=== PATIENT | female | born 1995 | race Caucasian/White ===

== ENCOUNTER 2024-05-11 07:54 | Inpatient (IN) ==
[2024-05-11] MEDS ORDERED: LIDOCAINE 1% LOCAL 20 ML VIAL INFIL PRN (08:13)
--- NOTE | 2024-05-11 08:47 | History & Physical Report ---
Date of Service May 11, 2024 Assessment & Plan (1) Carrier of group B Streptococcus: (2) Need for rhogam due to Rh negative mother: (3) Encounter for induction of labor: Plan Admit for IOL. Echevarria bulb placed 8/26 PM, currently still in place. Plan for 2x PCN and pit. Pt desires epidural for pain ctrl Admission and Anticipated Discharge Date Admission Date: May 11, 2024 History of Present Illness Primary Care Provider: NO PCP Patient is a 28 y/o female currently at 40 5/7 (NICHO 05/06/24) who is here for induction of labor. Echevarria bulb was placed 8/26 PM, currently still in place. She has had regular appointments with OB. She denies fevers, fatigue, FERNANDEZ, SOB, chest pain, leg swelling, or n/v exceeding baseline -related symptoms. movement present; no fluid loss or bloody show; External FHT and external uterine monitors used, FHT category 1 Blood type: O-; Rhogam given 02/18 Antibody screen: Neg GBS: Pos Rubella: Immune VDRL/RPR: Non-reactive Gonorrhea: Not detected Chalmydia: Not detected HIV: Non-reactive HbSAg: Non-reactive Allergies Allergy/AdvReac Type Severity Reaction Status Date / Time No Known Allergies Allergy Verified 05/11/24 10:23 Home Medications Medication Instructions Recorded Confirmed Type breast pump #1 ea 03/04/24 05/10/24 Rx vits no.124-ferrous fum 1 tab PO DAILY 05/11/24 05/11/24 History 27 mg iron-folic acid 800 mcg tablet ( Vitamin) Past Med/Surg History Problem List (Updated 05/11/24 @ 08:49 by Shabbir Hernandez MD) Encounter for induction of labor Encounter for care and examination of lactating mother Carrier of group B Streptococcus Encounter for anatomic survey Need for rhogam due to Rh negative mother resulting from in vitro fertilization, antepartum Medical History (Updated 05/11/24 @ 08:49 by Shabbir Hernandez MD) History of chicken pox Surgical History S/P myringotomy with insertion of tube S/P tonsillectomy Family History Mother Ovarian cancer Diabetes Father Hypercholesteremia Denies family history of Breast cancer Colorectal cancer Social History (Updated 11/05/23 @ 08:54 by Ernestine Castillo) Smoking Status: Never smoker Second Hand Exposure: No; Do You Dip or Chew Tobacco: No; Hx Alcohol Use: No Hx Substance Use: No Beliefs That Will Affect Care: None marital status: marital status details: Javad Soares (38) [phone] Current Living Situation: Spouse Current Living Situation Comment: lives with spouse, dogs current occupational status: employed current occupation: [employer] Other Information That Helps Us Care for You: No Feels Safe at Home: Yes Safety Concerns: Feels Safe At This Time Assistive Devices: None Physical Exam 2 Physical Exam: General: Alert and oriented. No acute distress CV: Regular rate and rhythm. No murmurs. Respiratory: CTA bilaterally. No rhonchi, wheezes, or crackles. No increased work of breathing. Abdomen: Gravid: Soft, nontender upon palpation Pelvic: 0.5 / 50 / -[address] Zavala on 05/10 Lower extremities: NO LE edema. No deep calf pain. Results & Data Results & Data Vital Signs (Past 12 Hours) Vital Signs Temp Pulse Resp BP 05/11/24 07:56 36.7 C 100 H 18 109/66 05/11/24 07:55 100 H 109/66 Laboratory Results 05/11/24 08:34 Supervising Physician Co-Signing Physician Notes Patient seen with resident and agree with the above findings and plan. Resident Activity Tracking Resident Involvement: Resident Care Provided Care Provided: OB Delivery
[2024-05-11 08:55] LABS: Hematocrit (blood only) 36.5 % (37.0-47.0); Hemoglobin 12.7 g/dl (12.0-16.0); Mean Corpuscular Hemoglobin 30.8 pg (25.0-34.0); Mean Corpuscular Hgb Conc 34.8 g/dL (32.0-36.0); Mean Corpuscular Volume 88.6 fL (80.0-100.0); Mean Platelet Volume 10.3 fL (9.4-12.4); Platelet Count 218 K/uL (130-400); RDW Coefficient of Variation 12.1 % (11.5-14.5); RDW Standard Deviation 38.7 fL (36.4-46.3); Red Blood Count 4.12 M/uL (4.20-5.40); White Blood Count 12.65 K/ul (4.8-10.8)
[2024-05-11] MEDS: LACTATED RINGER'S 1,000 ML IV PRN (09:03)
[2024-05-11] MEDS: OXYTOCIN 30 UNITS/NSS 30 UNITS/500 ML BAG IV PRN (09:04)
[2024-05-11] MEDS: PENICILLIN GK 6 MU in DEXTROSE 5% 250 ML IV STA (09:10)
[2024-05-11] MEDS: PENICILLIN GK 3 MU in DEXTROSE 5% 100 ML IV PRN (13:12)
[2024-05-11] MEDS ORDERED: NALOXONE HCL 0.4 MG/1 ML VIAL/CARP IV PRN (14:59)
[2024-05-11] MEDS ORDERED: NALBUPHINE HCL INJ 10 MG/ML AMP IV PRN (14:59)
[2024-05-11] MEDS ORDERED: ePHEDrine sulfate 50 MG/ML AMP IV PRN (14:59)
[2024-05-11] MEDS ORDERED: fentaNYL citrate PF 100 MCG/2 ML VIAL EPI PRN (14:59)
[2024-05-11] MEDS ORDERED: ROPIVACAINE 0.5% PF 5 MG/ML 20 ML VIAL EPI PRN (14:59)
[2024-05-11] MEDS ORDERED: NALOXONE HCL 1 MG in SODIUM CHLORIDE 0.9% 1,000 ML IV PRN (14:59)
[2024-05-11] MEDS ORDERED: SODIUM CHLORIDE 0.9% PF INJ 10 ML VIAL EPI PRN (14:59)
[2024-05-11] MEDS ORDERED: BUPIVACAINE 0.25% PF 30 ML VIAL EPI PRN (14:59)
[2024-05-11] MEDS ORDERED: diphenhydrAMINE 50 MG/ML VIAL IV PRN (14:59)
[2024-05-11] MEDS ORDERED: LIDOCAINE 2% MPF LOCAL 5 ML VIAL EPI PRN (14:59)
--- NOTE | 2024-05-11 14:59 | Anesthesiology Consultation ---
Date of Service May 11, 2024 Assessment & Plan (1) Encounter for pre-operative examination: Chart Review Chart Review: Patient NOT seen in Pre Admission Testing and Acceptable Risk for Labor Epidural Consults Requested none History Height/Weight Height: 5 ft 7 in Weight: 84.822 kg Allergies Allergy/AdvReac Type Severity Reaction Status Date / Time No Known Allergies Allergy Verified 05/11/24 10:23 Medications Home Medications Medication Instructions Recorded Confirmed Last Taken breast pump #1 ea 03/04/24 05/10/24 Unknown vits no.124-ferrous fum 1 tab PO DAILY 05/11/24 05/11/24 Unknown 27 mg iron-folic acid 800 mcg tablet ( Vitamin) Active Medications Generic Name Dose Route Start Last Admin Trade Name Freq PRN Reason Stop Dose Admin Lactated Ringer's 1,000 mls @ 125 mls/hr 05/11/24 08:13 05/11/24 14:55 Lr IV 05/13/24 08:12 999 mls/hr .Q8H PRN Infusion L&D Protocol Protocol Penicillin G Potassium 3 mu/ 106 mls @ 100 mls/hr 05/11/24 11:13 05/11/24 14:33 Dextrose IV 05/21/24 11:12 Infused Q4H PRN Infusion GBS(+) Until Delivery Oxytocin 30 units in 500 mls @ 10 mls/hr 05/11/24 08:21 05/11/24 13:15 Pitocin 30 Units/Nss IV 05/13/24 08:20 0.6 units/hr .Q24H PRN 10 mls/hr Labor Induction/Augmentation Titration Protocol 0.6 UNITS/HR Past Medical History Medical History History of chicken pox Past Family History Family History Mother Ovarian cancer Diabetes Father Hypercholesteremia Denies family history of Breast cancer Colorectal cancer Past Surgical History Surgical History S/P myringotomy with insertion of tube S/P tonsillectomy Social History Smoking Status: Never smoker Do You Dip or Chew Tobacco: No Hx Alcohol Use: No Hx Substance Use: No substance use type: does not use Physical Exam Vital Signs Last Vital Signs Temp 98.4 F 05/11/24 11:03 Pulse 99 H 05/11/24 14:20 Resp 18 05/11/24 11:03 BP 106/67 05/11/24 14:20 Testing Laboratory Results 05/11/24 08:34
[2024-05-11] MEDS: fentANYL 2 MCG/ML BUPIVacaine 0.125%-NSS 100ML BAG ONE (15:40)
[2024-05-11] MEDS: ONDANSETRON INJ 2 MG/ML 2 ML VIAL ONE (15:41)
[2024-05-11] MEDS: SODIUM CHLORIDE 0.9% PF INJ 10 ML VIAL ONE (15:42)
[2024-05-11] MEDS: fentaNYL citrate PF 100 MCG/2 ML VIAL ONE (15:42)
[2024-05-11] MEDS: BUPIVACAINE 0.25% PF 30 ML VIAL ONE (15:47)
[2024-05-11] MEDS: LIDOCAINE 2%/EPINEPHRINE 1:200,000 20 ML PF ONE (15:48)
[2024-05-11] MEDS: fentaNYL citrate PF 100 MCG/2 ML VIAL EPI STA (16:15)
[2024-05-11] MEDS: LIDOCAINE 2%/EPINEPHRINE 1:200,000 20 ML PF EPI STA (16:15)
[2024-05-11] MEDS: BUPIVACAINE 0.25% PF 30 ML VIAL EPI STA (16:15)
[2024-05-11] MEDS: SODIUM CHLORIDE 0.9% PF INJ 10 ML VIAL EPI STA (16:16)
[2024-05-11] MEDS: ACETAMINOPHEN 325 MG TAB PO PRN (18:06)
[2024-05-11] MEDS: ePHEDrine sulfate 50 MG/ML AMP ONE (18:13)
[2024-05-11] MEDS: ONDANSETRON INJ 2 MG/ML 2 ML VIAL IV PRN (20:04)
[2024-05-11] MEDS: CALCIUM CARBONATE 500 MG CHEWABLE TAB PO PRN (20:23)
[2024-05-12] MEDS: fentANYL 2 MCG/ML BUPIVacaine 0.125%-NSS 100ML BAG EPI PRN (00:09)
[2024-05-12] MEDS ORDERED: SODIUM CHLORIDE 0.9% 250 ML IV PRN (03:13)
[2024-05-12] MEDS: OXYTOCIN 30 UNITS/NSS 30 UNITS/500 ML BAG IV PRN (03:19)
[2024-05-12] MEDS: METHYLERGONOVINE MALEATE 0.2 MG/ML AMP IM STA (03:21)
[2024-05-12 03:49] LABS: Basophils # (auto) 0.03 K/uL (0.00-0.20); Basophils % (auto) 0.1 %; Eosinophils # (auto) 0.01 K/uL (0.00-0.50); Hematocrit (blood only) 30.1 % (37.0-47.0); Hemoglobin 10.1 g/dl (12.0-16.0); Immature Granulocytes # (auto) 0.14 K/uL (0.01-0.20); Immature Granulocytes % (auto) 0.6 %; Lymphocytes # (auto) 2.42 K/uL (1.20-3.40); Lymphocytes % (auto) 10.7 %; Mean Corpuscular Hemoglobin 30.7 pg (25.0-34.0); Mean Corpuscular Hgb Conc 33.6 g/dL (32.0-36.0); Mean Corpuscular Volume 91.5 fL (80.0-100.0); Mean Platelet Volume 10.2 fL (9.4-12.4); Monocytes # (auto) 2.32 K/uL (0.11-0.59); Monocytes % (auto) 10.2 %; Neutrophils # (auto) 17.78 K/uL (1.40-6.50); Neutrophils % (auto) 78.4 %; Platelet Count 212 K/uL (130-400); RDW Coefficient of Variation 12.4 % (11.5-14.5); RDW Standard Deviation 41.1 fL (36.4-46.3); Red Blood Count 3.29 M/uL (4.20-5.40)
[2024-05-12] MEDS ORDERED: HYDROCORTISONE ACETATE 25 MG SUPP PR PRN (04:15)
[2024-05-12] MEDS ORDERED: OXYTOCIN 30 UNITS/NSS 30 UNITS/500 ML BAG IV PRN (04:15)
--- NOTE | 2024-05-12 04:22 | Delivery Summary ---
Vaginal Delivery Summary Date of Service May 12, 2024 Vaginal Delivery Summary and 2nd Degree LAC Progressed to 10 cm dilated 100% effaced and +3 station pushed over intact perineum with epidural anesthesia delivered a viable female with weight and Apgars pending. Head of the delivered in BETH position and body and shoulders quickly followed. was noted be vigorous upon delivery and a 1 minute delayed cord clamping was initiated. Cord was then double clamped and cut remained in maternal abdomen. Cord blood obtained and attention turned deliver the placenta. The placenta was not showing any signs of spontaneous passage. Reattempt at delivering the placenta was tried on multiple occasions until about the 25-minute viridiana at which time there is a large gush of blood. In the interim while waiting for the placenta a second-degree perineal laceration with bilateral sulcal lacerations was repaired using 3-0 Vicryl in the continuous running and crown stitch. At the 25-minute viridiana with a large gush of blood reattempt at the placenta was then initiated. The placenta was still noted to be significantly adhered and was not spontaneously delivering continued uterine massage and attempt at patient pushing and also not deliver the placenta. On exam the placental edge was noted at the level of the cervix and was grasped and pulled through the cervix and delivered. The placenta was noted to be tattered and expected be missing pieces. At that time and evaluation of bleeding was performed by the nurse and an approximate QBL of around 1300 mL at that point. There is noted be continued bleeding and a sweep of the uterus did note remaining placenta and several pieces were removed with just a manual sweep. A banjo curette was then used and several additional pieces of placenta were removed. A secondary sweep of the uterus noted no apparent retained placenta. The bladder was then drained and bleeding was noted to significantly improved to a normal post delivery bleeding. There is noted to be a firm uterus 3 cm below umbilicus. A single dose of Methergine was given. At that point the patient was complaining of nausea and was noted to be acutely hypotensive in the 60s over 40s. A bolus of Pitocin was already initiated and a second IV placed and is additional bolus was started. CBC and type and screen ordered and a stat order for untyped blood sent. Total bleeding was then officially calculated by the nurse and was noted around 1550 mL at that point. Continued monitoring noted a slow improvement of blood pressure and heart rate. Patient was still lethargic but responsive throughout. Blood was initiated as s oon as it arrived on the unit and overall bleeding remained minimal post expected bleeding. [facility] Vaginal Delivery Charge Delivery Type Details: and 2nd Degree LAC
[2024-05-12] MEDS: METHYLERGONOVINE MALEATE 0.2 MG/ML AMP ONE (06:23)
[2024-05-12] MEDS: DIPHTHER/TETAN/PERTUS Vaccine (Tdap, Adol/Adult) 0.5mL IM ONE (06:23)
[2024-05-12 07:47] LABS: Hematocrit (blood only) 30.3 % (37.0-47.0); Hemoglobin 10.3 g/dl (12.0-16.0); Mean Corpuscular Hemoglobin 30.7 pg (25.0-34.0); Mean Corpuscular Volume 90.4 fL (80.0-100.0); Mean Platelet Volume 10.3 fL (9.4-12.4); Platelet Count 181 K/uL (130-400); RDW Coefficient of Variation 12.5 % (11.5-14.5); Red Blood Count 3.35 M/uL (4.20-5.40); White Blood Count 28.13 K/ul (4.8-10.8)
--- NOTE | 2024-05-12 08:42 | Anesthesia Procedure Note ---
Date of Service May 12, 2024 Anesthesia Post Epidural Note Vital Signs Vital Signs: Temp Pulse Resp BP Pulse Ox O2 Flow Rate 37.0 C 131 H 20 94/51 L 98 10 05/12/24 05:25 05/12/24 08:37 05/12/24 07:45 05/12/24 08:28 05/12/24 08:37 05/12/24 04:25 Notes Mental Status: alert / awake / arousable and participated in evaluation Nausea / Vomiting: adequately controlled Pain: adequately controlled Airway Patency, RR, SpO2: stable & adequate BP & HR: stable & adequate Hydration State: stable & adequate Neuraxial Anesthesia: was administered and sensory block resolved Anesthetic Complications: no major complications apparent and Pt Satisfied with anesthetic care Epidural: Removed without complications and With tip intact
[2024-05-12] MEDS: FERROUS SULFATE 325 MG TAB PO SCH (08:51)
[2024-05-12] MEDS: DOCUSATE SODIUM 100 MG CAP PO SCH (08:51)
[2024-05-12] MEDS: PRENATAL VITAMIN 1 TAB PO SCH (08:51)
[2024-05-12] MEDS: ceFAZolin 2000MG 2,000 MG/15 ML SYR IV SCH (09:36)
--- NOTE | 2024-05-12 10:31 | Communication Note ---
Date of Service: May 12, 2024 Called by nursing - pt had been sitting in bed and at bedside, w/o issue. Was wheeled to bathroom as right leg still a bit numb and sat on toilet, started feeling lightheaded/dizzy. Sounded like she was voiding but some blood also noted so nursing not able to tell if all blood or mixed with urine at all. Once back in bed, she felt better. Fundus feels firm and at umbilicus, bleeding appropriate with fundal check. gentle digital exam didn't reveal add'l clot in the vagina. Straight cath performed by nursing for 100cc of dark urine but not sure if bladder was just almost empty. BP appears stable to her baseline, still a bit tachy. ?if symptom r/t bleeding or if that was first time up since delivery. Will recheck h/h at 1130 which is 4hrs from last h/h that was done 1hr after transfusion, may need second bag of blood pending symptoms and results. Will give 500cc bolus currently, ancef was ordered earlier as well
[2024-05-12 11:42] LABS: Hematocrit (blood only) 25.6 % (37.0-47.0); Hemoglobin 8.8 g/dl (12.0-16.0); Mean Corpuscular Hemoglobin 30.9 pg (25.0-34.0); Mean Corpuscular Hgb Conc 34.4 g/dL (32.0-36.0); Mean Corpuscular Volume 89.8 fL (80.0-100.0); Mean Platelet Volume 10.2 fL (9.4-12.4); Platelet Count 166 K/uL (130-400); RDW Coefficient of Variation 12.7 % (11.5-14.5); RDW Standard Deviation 41.5 fL (36.4-46.3); Red Blood Count 2.85 M/uL (4.20-5.40); White Blood Count 27.85 K/ul (4.8-10.8)
--- NOTE | 2024-05-12 12:58 | Communication Note ---
Date of Service: May 12, 2024 hgb 8.8 currently, tachy has improved a bit, bp stable. Pt was able to ambulate in room a bit w/ rn assistance, felt tired but not lightheaded/dizzy/weak. Ate lunch well. Bleeding improved. Ok to move over to pp and plan to recheck cbc later this afternoon. Don't think need another unit of prbc currently but will await f/u cbc and also see how symptoms go as well. Pt and in agreement
[2024-05-12] MEDS: IBUPROFEN 600 MG TAB PO PRN (13:41)
--- NOTE | 2024-05-12 14:28 | Communication Note ---
Date of Service: May 12, 2024 asked to evaluate pt because of c/o increased pain/numbness and tingling of the right leg since removal of epidural. pt is able to ambulate. Pt was lying in bed. pt c/o a stabbing pain originating in her right hip and traveling along the lateral aspect of her foot ending at the dorsum of the foot. she also c/o increased tingling/numbness in those areas. this has progressed since this morning. pt is 5/5 in muscle strength in most areas of the leg. she was unable to do abduction or adduction 2/2 pain. her flexion and extension of the foot were intact. Her symptoms are consistent with L4-S1 nerve roots and appears to be sensory at this time. Of concern is the subjective worsening of her symptoms. She did recieve blood for a PPH, but platelets were normal after and at time of epidural removal. Most likely a nerve injury secondary to trauma or epidural. They will resolve in ~ 6 weeks and this was explained to the patient and her . I would recommend and evaluation by neurology because of the worsening aspect of her symptoms.
--- NOTE | 2024-05-12 15:31 | Communication Note ---
Date of Service: May 12, 2024 Pt noting worsened R shooting groin pain that goes down leg. Most of pain is in the groin but has the numbness sensation like leg fell asleep down nguyễn- inferior thigh and down front of leg to dorsum of foot. Reported this after epidural started wearing off but has continued to worsen. Feels like it is "cold" but feels warm to touch. Denies strength difficulties, has been up to bathroom and back w/o difficulty. Suspect related to nerve injury from delivery vs epidural, anesthesia in agreement. However given that symptoms have worsened, agree w/ rec for neuro consult so will place
--- NOTE | 2024-05-12 16:10 | Neurology Consultation ---
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 pt noted groin area pain and rt leg numbness down lateral/anterior thigh and down to top of the rt foot. she was able to walk today and able to support her weight. no obvious weakness. no back pain associated. pt just feels odd cold/numb feeling on rt leg. pain is tolerable for now with ibuprofen. no bowel/bladder issue. OB delivery note: and 2nd Degree LAC Progressed to 10 cm dilated 100% effaced and +3 station pushed over intact perineum with epidural anesthesia delivered a viable female with weight and Apgars pending. Head of the delivered in BETH position and body and shoulders quickly followed. was noted be vigorous upon delivery and a 1 minute delayed cord clamping was initiated. Cord was then double clamped and cut remained in maternal abdomen. Cord blood obtained and attention turned deliver the placenta. The placenta was not showing any signs of spontaneous passage. Reattempt at delivering the placenta was tried on multiple occasions until about the 25-minute viridiana at which time there is a large gush of blood. In the interim while waiting for the placenta a second-degree perineal laceration with bilateral sulcal lacerations was repaired using 3-0 Vicryl in the continuous running and crown stitch. At the 25-minute viridiana with a large gush of blood reattempt at the placenta was then initiated. The placenta was still noted to be significantly adhered and was not spontaneously delivering continued uterine massage and attempt at patient pushing and also not deliver the placenta. On exam the placental edge was noted at the level of the cervix and was grasped and pulled through the cervix and delivered. The placenta was noted to be tattered and expected be missing pieces. At that time and evaluation of bleeding was performed by the nurse and an approximate QBL of around 1300 mL at that point. There is noted be continued bleeding and a sweep of the uterus did note remaining placenta and several pieces were removed with just a manual sweep. A banjo curette was then used and several additional pieces of placenta were removed. A secondary sweep of the uterus noted no apparent retained placenta. The bladder was then drained and bleeding was noted to significantly improved to a normal post delivery bleeding. There is noted to be a firm uterus 3 cm below umbilicus. A single dose of Methergine was given. At that point the patient was complaining of nausea and was noted to be acutely hypotensive in the 60s over 40s. A bolus of Pitocin was already initiated and a second IV placed and is additional bolus was started. CBC and type and screen ordered and a stat order for untyped blood sent. Total bleeding was then officially calculated by the nurse and was noted around 1550 mL at that point. Continued monitoring noted a slow improvement of blood pressure and heart rate. Patient was still lethargic but responsive throughout. Blood was initiated as soon as it arrived on the unit and overall bleeding remained minimal post expected bleeding. Allergies Allergy/AdvReac Type Severity Reaction Status Date / Time No Known Allergies Allergy Verified 05/11/24 10:23 Home Medications Medication Instructions Recorded Confirmed Type breast pump #1 ea 03/04/24 05/10/24 Rx vits no.124-ferrous fum 1 tab PO DAILY 05/11/24 05/11/24 History 27 mg iron-folic acid 800 mcg tablet ( Vitamin) Patient History Medical History History of chicken pox Surgical History S/P myringotomy with insertion of tube S/P tonsillectomy Family History Mother Ovarian cancer Diabetes Father Hypercholesteremia Denies family history of Breast cancer Colorectal cancer Social History (Updated 11/05/23 @ 08:54 by Ernestine Castillo) Smoking Status: Never smoker Second Hand Exposure: No; Do You Dip or Chew Tobacco: No; Hx Alcohol Use: No Hx Substance Use: No Beliefs That Will Affect Care: None marital status: marital status details: Javad Soares (38) [phone] Current Living Situation: Spouse Current Living Situation Comment: lives with spouse, dogs current occupational status: employed current occupation: [employer] Other Information That Helps Us Care for You: No Feels Safe at Home: Yes Safety Concerns: Feels Safe At This Time Assistive Devices: None Exam (Neuro) Physical Exam: HEENT: normocephalic grossly Neuro: Mental: AOx4, fluent speech, normal comprehension, CN: Full EOM, symmetric face, Motor: No abnormal movements, normal tone, 5/5 t/o bilaterally lower ext t/o. Sens: decrease to touch rt leg anterior and lateral thigh and t/o below the knee to top of the foot. Coord: intact DTR: 2+ sym b/l lower ext and toes down b/l. Gait: deferred. Impression: 28 yo female s/p vaginal delivery less than 12 hrs ago with epidural stopped this morning having groin pain and rt leg numbness that does not follow particular dermatome. 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 no concern with spinal cord or lumbosacral plexus injury at this point. Recommendations: reassured pt. no need for image at this point unless new symptoms arise. likely expect improvement next 24-48 hrs. she can continue to walk as tolerated. pain control as needed by hat and cap parts cutter hand Chart reviewed I have spent more than 50% educating patient about potential diagnosis and neurological evaluation and coordinating care with patient's treatment team. Total time spent (including chart review and coordination of care): 60 min (this includes chart review). Results & Data Vital Signs (Past 12 Hours) Vital Signs Temp Pulse Resp BP Pulse Ox O2 Flow Rate 05/12/24 12:00 20 05/12/24 11:47 107 H 93/50 L 05/12/24 11:17 111 H 107/66 05/12/24 10:52 36.9 C 116 H 20 101/62 97 10 05/12/24 10:47 116 H 101/62 05/12/24 10:02 121 H 100/59 L 05/12/24 09:37 116 H 97 05/12/24 09:32 114 H 98 05/12/24 09:29 115 H 96/50 L 05/12/24 09:27 116 H 97 05/12/24 09:22 117 H 96 05/12/24 09:17 119 H 98 05/12/24 09:12 116 H 96 05/12/24 09:07 115 H 96 05/12/24 09:02 110 H 97 05/12/24 08:57 120 H 100/56 L 97 05/12/24 08:52 119 H 97 05/12/24 08:47 130 H 98 05/12/24 08:45 36.9 C 20 05/12/24 08:42 110 H 97 05/12/24 08:37 131 H 98 05/12/24 08:32 128 H 98 05/12/24 08:28 116 H 94/51 L 05/12/24 08:27 116 H 98 05/12/24 08:22 125 H 97 05/12/24 08:17 124 H 99 05/12/24 08:12 124 H 97 05/12/24 08:07 115 H 98 05/12/24 08:02 113 H 98 05/12/24 07:57 117 H 98 05/12/24 07:52 123 H 97 05/12/24 07:47 125 H 98 05/12/24 07:45 20 05/12/24 07:43 127 H 90/51 L 05/12/24 07:42 129 H 98 05/12/24 07:37 123 H 96 05/12/24 07:32 124 H 98 05/12/24 07:27 130 H 98 05/12/24 07:22 116 H 97 05/12/24 07:17 120 H 96 05/12/24 07:13 130 H 83/54 L 05/12/24 07:12 124 H 97 05/12/24 07:07 128 H 96 05/12/24 07:02 137 H 97 05/12/24 06:58 131 H 83/55 L 05/12/24 06:57 124 H 97 05/12/24 06:52 119 H 95 05/12/24 06:47 121 H 95 05/12/24 06:43 115 H 84/54 L 05/12/24 06:42 127 H 95 05/12/24 06:37 137 H 97 05/12/24 06:32 143 H 99 05/12/24 06:28 111 H 81/51 L 05/12/24 06:27 115 H 97 05/12/24 06:26 120 H 76/47 L 05/12/24 06:22 114 H 97 05/12/24 06:21 127 H 75/45 L 05/12/24 06:17 112 H 96 05/12/24 06:16 127 H 77/49 L 05/12/24 06:12 121 H 96 05/12/24 06:11 121 H 81/51 L 05/12/24 06:07 127 H 97 05/12/24 06:06 125 H 87/49 L 05/12/24 06:02 142 H 97 05/12/24 06:01 133 H 82/53 L 05/12/24 05:57 125 H 98 05/12/24 05:56 126 H 90/56 L 05/12/24 05:52 128 H 97 05/12/24 05:51 115 H 87/54 L 05/12/24 05:47 120 H 97 05/12/24 05:46 142 H 86/51 L 05/12/24 05:42 121 H 96 05/12/24 05:41 115 H 84/50 L 05/12/24 05:37 104 H 95 05/12/24 05:36 125 H 84/53 L 05/12/24 05:32 129 H 98 05/12/24 05:31 121 H 82/51 L 05/12/24 05:27 105 H 95 05/12/24 05:26 116 H 84/51 L 05/12/24 05:25 37.0 C 132 H 18 82/53 L 97 05/12/24 05:22 117 H 95 05/12/24 05:21 115 H 83/51 L 05/12/24 05:17 115 H 95 05/12/24 05:16 110 H 87/51 L 05/12/24 05:12 116 H 96 05/12/24 05:11 106 H 89/54 L 05/12/24 05:07 114 H 96 05/12/24 05:06 120 H 86/53 L 05/12/24 05:02 121 H 97 05/12/24 05:01 116 H 89/55 L 05/12/24 04:57 124 H 97 05/12/24 04:56 112 H 101/56 L 05/12/24 04:55 36.9 C 112 H 18 98/60 L 96 05/12/24 04:52 122 H 98 05/12/24 04:51 121 H 98/60 L 05/12/24 04:47 125 H 99 05/12/24 04:46 127 H 89/55 L 05/12/24 04:42 113 H 99 05/12/24 04:41 107 H 87/51 L 05/12/24 04:37 102 H 100 05/12/24 04:36 114 H 84/53 L 05/12/24 04:32 105 H 99 05/12/24 04:31 103 H 85/50 L 05/12/24 04:27 124 H 98 05/12/24 04:26 115 H 82/52 L 05/12/24 04:25 36.9 C 117 H 14 82/52 L 99 10 05/12/24 04:22 111 H 100 05/12/24 04:21 110 H 80/51 L 05/12/24 04:17 120 H 99 05/12/24 04:16 125 H 75/48 L 05/12/24 04:12 126 H 100 05/12/24 04:11 109 H 80/48 L 05/12/24 04:10 37.1 C 129 H 16 80/48 L 99 05/12/24 04:07 118 H 99 05/12/24 04:06 114 H 83/48 L PG Care Time/CCT Total # of Minutes Spent Total Time Spent with Patient: Total time spent is greater than 50% in coordination of care (as documented) at patient's floor/unit and/or counseling patient: Coding Level of Care Code 11528 IN/OBS CONSULT LVL 4,60M Diagnoses Pudendal neuralgia G58.8
[2024-05-12] MEDS: oxyCODONE HCL IR 5 MG TAB (IMMEDIATE RELEASE) PO PRN (16:41)
[2024-05-12 17:13] LABS: Hematocrit (blood only) 21.3 % (37.0-47.0); Hemoglobin 7.3 g/dl (12.0-16.0); Mean Corpuscular Hemoglobin 30.7 pg (25.0-34.0); Mean Corpuscular Hgb Conc 34.3 g/dL (32.0-36.0); Mean Corpuscular Volume 89.5 fL (80.0-100.0); Mean Platelet Volume 10.4 fL (9.4-12.4); Platelet Count 145 K/uL (130-400); RDW Coefficient of Variation 12.9 % (11.5-14.5); RDW Standard Deviation 41.7 fL (36.4-46.3); Red Blood Count 2.38 M/uL (4.20-5.40); White Blood Count 22.66 K/ul (4.8-10.8)
[2024-05-12] MEDS: BENZOCAINE 20% SPRY 85 APPLN/85 GM CAN EXT PRN (20:16)
--- NOTE | 2024-05-13 05:58 | Obstetrical Progress Note ---
Date of Service May 13, 2024 Assessment & Plan (1) Carrier of group B Streptococcus: (2) Need for rhogam due to Rh negative mother: (3) Encounter for induction of labor: (4) care and examination: Plan PPD#1: Stable, continue routine care, continue OOB and try ambulating around unit. Consider 1U blood if too tiring. Tentative d/c tomorrow Rh neg, gbs pos, ri Admission and Anticipated Discharge Date Admission Date: May 11, 2024 Supervising Physician Co-Signing Physician Notes Resident Physician Supervision Note: I interviewed and examined the patient. Discussed with Dr. Hernandez and agree with findings and plan as documented in the note. Any exceptions or clarifications are listed here: PP1 s/p c/b retained plac, PPH s/p 1u pRBC. Ambulating in room, voiding w/o difficulty. Denies lightheadedness/dizziness. VSS, tachycardia improved. Groin pain improved as well. hgb came back at 6.8 today, discussed pros and cons of additional unit as she otherwise feels really well. Will see how she does ambulating outside the room today and consider another unit Documented By: Emelyn Pemberton MD Monique Cobb is a 28yo who is PPD#1 following at term. She says she feels great. Rates her pain 5/10, says medications helped but she refused her latest dose to see how she fares. She is ambulating well, no dizziness or weakness, was able to stand to take a shower. She is eating, drinking, and urinating normally. Abnormal sensations in legs resolved. 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 Currently breast feeding. Review of Systems 2 Constitutional: no fever, no chills and no sweats Respiratory: no dyspnea Cardiovascular: no chest pain, no palpitations and no calf pain Genitourinary: no dysuria Neurologic: no headache(s) Physical Exam 2 Physical Exam: General: Alert, oriented. No acute distress. Cardiac: Regular rate and rhythm, no murmurs, rubs, or gallops. Respiratory: Clear to auscultation bilaterally, no wheezes/rales/rhonchi. No increased work of breathing. Symmetrical chest rise. No respiratory distress. Abdomen: Soft, nontender, nondistended. Bowel sounds present. Uterus: Uterine fundus firm, palpable at the level of the umbilicus. Lower extremities: No lower extremity edema or swelling. No deep calf pain. Results & Data Vital Signs (Past 12 Hours) Vital Signs Temp Pulse Resp BP Pulse Ox O2 Del Method 05/13/24 03:00 36.5 C 89 18 103/65 98 Room Air 05/12/24 22:50 36.3 C L 99 H 18 96/64 L 96 Room Air 05/12/24 20:15 36.8 C 87 18 100/61 98 Room Air Laboratory Results 05/13/24 05:51 Resident Activity Tracking Resident Involvement: Resident Care Provided Care Provided: Adult [facility]
[2024-05-13 06:36] LABS: Hemoglobin 6.8 g/dl (12.0-16.0); Mean Corpuscular Hemoglobin 30.9 pg (25.0-34.0); Mean Corpuscular Volume 90.9 fL (80.0-100.0); Mean Platelet Volume 10.5 fL (9.4-12.4); Platelet Count 133 K/uL (130-400); RDW Coefficient of Variation 13.2 % (11.5-14.5); RDW Standard Deviation 43.1 fL (36.4-46.3); White Blood Count 20.03 K/ul (4.8-10.8)
[2024-05-13] MEDS ORDERED: SODIUM CHLORIDE 0.9% 250 ML IV PRN (15:25)
[2024-05-13] MEDS: ACETAMINOPHEN 325 MG TAB PO PRN (16:01)
[2024-05-13] MEDS ORDERED: bisacodyL 5 MG TABEC PO SCH (20:00)
[2024-05-13] MEDS: ALBUTEROL HFA 8 GM INHALER INH ONE (20:21)
[2024-05-14] MEDS ORDERED: bisacodyL 10 MG SUPP PR PRN
[2024-05-14 03:33] VITALS: RESP 16
--- NOTE | 2024-05-14 06:50 | Obstetrical Progress Note ---
Date of Service May 14, 2024 Assessment & Plan (1) Carrier of group B Streptococcus: (2) Need for rhogam due to Rh negative mother: (3) Encounter for induction of labor: (4) care and examination: Plan PPD#2: Doing well, VSS, d/c today Rh neg, gbs pos, ri Admission and Anticipated Discharge Date Admission Date: May 11, 2024 Supervising Physician Co-Signing Physician Notes Resident Physician Supervision Note: I interviewed and examined the patient. Discussed with Dr. Hernandez and agree with findings and plan as documented in the note. Any exceptions or clarifications are listed here: Doing much better this am. Had an asthma attack last night that resolved completely with inhaler. Script given for one for home. hx of asthma in the past but no issues recently. Feeling so much better after another unit yesterday, h/h pending but doing well and plan d/c. INstructions given. Documented By: Violeta Liu MD, FACOG Subjective Jordyn is a 28yo who is PPD#2 following at term, c/b retained placenta & PPH. Says she feels much better this morning. Was able to walk around yesterday, but felt weak and slow to take care of herself and baby. Accepted blood transfusion, but had SOB near the end that she says was just like her past asthma attacks. Improved w albuterol. She is eating, drinking, and urinating normally. 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 Currently breast feeding. Review of Systems Constitutional: no fever, no chills and no sweats Respiratory: no dyspnea Cardiovascular: no chest pain, no palpitations and no calf pain Genitourinary: no dysuria Neurologic: no headache(s) Physical Exam Physical Exam: General: Alert, oriented. No acute distress. Cardiac: Regular rate and rhythm, no murmurs, rubs, or gallops. Respiratory: Clear to auscultation bilaterally, no wheezes/rales/rhonchi. No increased work of breathing. Symmetrical chest rise. No respiratory distress. Abdomen: Soft, nontender, nondistended. Bowel sounds present. Uterus: Uterine fundus firm, palpable at the level of the umbilicus. Lower extremities: No lower extremity edema or swelling. No deep calf pain. Results & Data Vital Signs (Past 12 Hours) Vital Signs Temp Pulse Resp BP Pulse Ox O2 Del Method FiO2 08/30/24 03:32 36.5 C 76 16 94/62 L 98 Room Air 05/13/24 22:55 36.6 C 83 18 95/56 L 100 Room Air 05/13/24 20:19 14 98 21 Resident Activity Tracking Resident Involvement: Resident Care Provided Care Provided: Adult Hospital Medicine
[2024-05-14 08:21] LABS: Hematocrit (blood only) 21.2 % (37.0-47.0); Hemoglobin 7.2 g/dl (12.0-16.0)
[2024-05-14 08:23] LABS: Hematocrit (blood only) 20.9 % (37.0-47.0); Hemoglobin 7.1 g/dl (12.0-16.0); Mean Corpuscular Hemoglobin 30.6 pg (25.0-34.0); Mean Corpuscular Volume 90.1 fL (80.0-100.0); Mean Platelet Volume 9.9 fL (9.4-12.4); Nucleated RBC # (auto) 0.03 K/uL (0.00-0.12); Nucleated RBC % (auto) 0.2 %; Platelet Count 146 K/uL (130-400); RDW Coefficient of Variation 13.5 % (11.5-14.5); RDW Standard Deviation 44.4 fL (36.4-46.3); Red Blood Count 2.32 M/uL (4.20-5.40); White Blood Count 14.02 K/ul (4.8-10.8)
[2024-05-14 15:59] VITALS: BP 111/72; PULSE 98; TEMP 98.4; O2SAT 97
--- NOTE | 2024-05-15 13:03 | Coding Query ---
CODING QUERY To promote full compliance with coding requirements relating to patient care, provider participation is requested in all cases of power line lineman uncertainty. Please assist us with the question(s) below: Coding Question(s): Pt delivered this admission. Delivery note states retention placenta. 2 Units of Packed cells administered. Please document, if known or suspected, the diagnosis/reason for the packed cells. thanks for your help. Jerad Colin [facility] Physician's Response(s): acute anemia from pp hemorrhage secondary to retained pocs/ Principal Diagnosis: "that condition established after study, to be chiefly responsible for occasioning the admission of the patient to the hospital for care." Co-Existing Principal Diagnosis: "when two or more diagnoses equally meet the criteria for principal diagnosis as determined by the circumstances of admission, diagnostic work up, and/or therapy provided, and the Alphabetic Index, Tabular List, or another coding guideline does not provide sequencing direction, any one of the diagnoses may be sequenced first." "When the physician has documented what appears to be a current diagnosis in the body of the record, but has not included the diagnosis in the final diagnostic statement, the physician should be asked whether the diagnosis should be added." (Source Coding Clinic 2 QTR90. p3-4) ASHLEY
== END 2024-05-14 19:09 | disposition home or self-care (01) | DRG 806 ==
LOC: 4S1 07:54 → 4E2 05-12 13:27